=== PATIENT | male | born 1980 | race Caucasian/White ===

== ENCOUNTER 2018-01-23 21:47 | Emergency (ER) | payer SELFPAY ==
[~2018-01-23 21:47] MED LIST: ISOVUE-370 76%-LOCM 1 ML ONE
[2018-01-23] MEDS ORDERED: Ibuprofen 800 MG TAB ONE (22:41)
[2018-01-23 22:56] LABS: #Eosinphils 0.1 thou/uL (0.0-0.7); #Lymphocytes 0.9 thou/uL (1.20-3.40); #Neutrophils 6.9 thou/uL (1.40-6.50); %Basophils 0.3 % (0.0-1.0); %Lymphocytes 10.4 % (21.0-51.0); %Monocytes 11.1 % (0.0-10.0); %Neutrophils 77.3 % (42.0-75.0); Hemoglobin 14.4 g/dL (14.0-18.0); Mean Corpuscular HGB CONC 33.4 g/dL (32.0-36.0); Mean Corpuscular Hemoglobin 29.7 pg (27.0-31.0); Mean Corpuscular Volume 88.9 fL (78.0-98.0); Mean Platelet Volume 8.1 fL (7.4-10.4); Platelet Count 214 thou/uL (130-400); RBC Distribution Width 12.1 % (11.5-14.5); Red Blood Cell (RBC) Count 4.85 mill/uL (4.70-6.10)
[2018-01-23 23:17] LABS: ALT (SGPT) 37 U/L (8-55); AST (SGOT) 22 U/L (5-34); Albumin 4.3 g/dL (3.5-5.0); Alkaline Phosphatase 61 U/L (40-150); Anion Gap 12 mmol/L (10-20); BUN (Urea Nitrogen) 13 mg/dL (8.9-20.6); Bilirubin, Total 0.4 mg/dL (0.2-1.2); Calc. Creatinine Clearance 0 mL/min (70-130); Calcium 8.9 mg/dL (7.8-10.44); Carbon Dioxide 23 mmol/L (22-29); Chloride 106 mmol/L (98-107); Estimated GFR-MDRD Greater than 90; Globulin 2.7 g/dL (2.4-3.5); Glucose 112 mg/dL (70-105); Lipase 31 U/L (8-78); Potassium 3.9 mmol/L (3.5-5.1); Sodium 137 mmol/L (136-145)
--- NOTE | 2018-01-23 23:49 | CT ---
ABDOMEN AND PELVIS WITH IV CONTRAST: HISTORY: Right-sided abdominal pain and fever. FINDINGS: The lung bases are clear. The liver, spleen, pancreas, adrenal glands, and kidneys are normal. No c alcified gallstones are seen. No free air, free fluid, or lymphadenopathy is seen in the abdomen or pelvis. A normal appearing appendix is seen. No acute osseous abnormalities are seen. IMPRESSION: No evidence of appendicitis. POS: [facility]
--- NOTE | 2018-01-24 07:47 | RAD ---
PORTABLE CHEST: Date: 01/23/18 HISTORY: Fever and cough. FINDINGS: Lungs are clear of infiltrate. Heart and mediastinum appear unremarkable. IMPRESSION: No acute process identified. POS: [facility]
== END 2018-01-24 00:08 | disposition home or self-care (01) ==
LOC: ERS 21:47
DX: H66.93 Otitis media, unspecified, bilateral (principal); F17.210 Nicotine dependence, cigarettes, uncomplicated
CPT/HCPCS: 36415; 71045; 74177; 80053; 83690; 85025; 87804